=== PATIENT | female | born 1980 | race Caucasian/White ===

== ENCOUNTER 2016-11-19 05:16 | Day surgery (SDC) | payer OTHER ==
[~2016-11-19] VITALS: Ht 158.8 cm; Wt 58.2 kg
[~2016-11-19 05:16] MED LIST: CARISOPRODOL350 MG PO; Dulcolax PO; FLONASE16 G1 BOTH NARES; GABAPENTIN300 MG PO; KEFLEX500 MG PO; LEVAQUIN500 MG PO; MIRALAX17 GM PO; Milk Of Magnesia,MOM PO; NAPROSYN500 MG PO; NOHOMEMEDS; OXYCODONE HCL30 MG PO; OXYMORPHONE HCL20 MG PO; PROAIR HFA8.5 GM IH; SUBOXONE 8 MG-1 EAC2 SL; Senokot,Sennagen PO; TESSALON PERLE100 MG PO; ZOLOFT50 MG PO; oxyCODONE PO
[2016-11-19 05:53] VITALS: BP 104/68
[2016-11-19 13:53] VITALS: BP 110/60
[2016-11-19 19:15] VITALS: BP 103/55
[2016-11-19 23:06] VITALS: BP 99/55
[2016-11-20 03:22] VITALS: BP 96/54
[2016-11-20 07:24] VITALS: BP 102/61
[2016-11-20 07:31] LABS: HEMATOCRIT 32.1 % (36.0-46.0); MCH 30.7 PG (29.0-34.0); MCHC 33.6 G/DL (30.0-36.0); MCV 91.2 FL (83-99); MEAN PLAT.VOLUME 9.8 uM^3 (9.5-12.4); RBC DIS.WIDTH-CV 13.8 % (11.8-14.6); RBC DIS.WIDTH-SD 45.3 % (39-53); WHITE BLOOD COUNT 6.2 K/uL (4.1-10.2)
[2016-11-20 07:40] LABS: PLATELET COUNT 157 K/uL (156-360); RED BLOOD COUNT 3.52 M/uL (3.80-5.20)
[2016-11-20 11:16] VITALS: BP 105/60
[2016-11-20 12:03] LABS: HEMATOCRIT 32.4 % (36.0-46.0)
[2016-11-20] MEDS ORDERED: MOTRIN800 MG PO (12:37)
[2016-11-20] MEDS ORDERED: OXYCODONE HCL10 MG PO (12:39)
== END 2016-11-20 13:19 | disposition home or self-care (01) ==
LOC: SDC 05:16 → 2SOUTH 12:52 → 2EASTP 12:52 → 2SOUTH 12:52 → 2EASTP 13:42 → SDC 15:46 → 2EASTP 11-20 13:19
PROVIDERS: Obstetrics & Gynecology
DX: N94.6 Dysmenorrhea, unspecified (principal); N92.0 Excessive and frequent menstruation with regular cycle; N87.9 Dysplasia of cervix uteri, unspecified; N80.3 Endometriosis of pelvic peritoneum; N80.0 Endometriosis of uterus; F17.200 Nicotine dependence, unspecified, uncomplicated; J45.21 Mild intermittent asthma with (acute) exacerbation; Z87.410 Personal history of cervical dysplasia; F11.20 Opioid dependence, uncomplicated; Z82.61 Family history of arthritis; Z80.8 Family history of malignant neoplasm of other organs or systems; Z88.8 Allergy status to other drugs, medicaments and biological substances
CPT/HCPCS: 84702; 85014; 85018; 85025; 85027; 86900; 86901; 88305; 88307; 99202; G0378; J0131; J0690; J1100; J1170; J1885; J2250; J2550; J2710; J3010; J7120

== ENCOUNTER 2016-11-22 13:46 | Emergency (ER) | payer OTHER ==
[~2016-11-22] VITALS: Ht 160 cm; Wt 63.5 kg
[~2016-11-22 13:46] MED LIST changes: +MOTRIN800 MG PO; +OXYCODONE HCL10 MG PO
[2016-11-22] MEDS ORDERED: SUBOXONE 8 MG-1 EAC2 SL (14:46)
[2016-11-22 14:47] LABS: EOSINOPHIL (%) 8.6 % (0-5); EOSINOPHIL COUNT 0.5 K/uL (0-0.3); HEMATOCRIT 35.5 % (36.0-46.0); IMMATURE GRANULOCYTE (%) 0.4 % (0.0-0.7); LYMPHOCYTE COUNT 0.6 K/uL (1.0-2.8); MCH 29.9 PG (29.0-34.0); MCHC 33.8 G/DL (30.0-36.0); MCV 88.3 FL (83-99); MEAN PLAT.VOLUME 9.7 uM^3 (9.5-12.4); MONOCYTE (%) 2.7 % (3-12); MONOCYTE COUNT 0.1 K/uL (0-0.8); NEUTROPHIL (%) 75.5 % (45-76); PLATELET COUNT 184 K/uL (156-360); RBC DIS.WIDTH-CV 13.2 % (11.8-14.6); RBC DIS.WIDTH-SD 42.9 % (39-53); RED BLOOD COUNT 4.02 M/uL (3.80-5.20); WHITE BLOOD COUNT 5.2 K/uL (4.1-10.2)
[2016-11-22 14:56] LABS: ADD MIUA? YES; BILIRUBIN NEGATIVE; BLOOD MODERATE; COLOR YELLOW ((YELLOW)); GLUCOSE (STRIP) NEGATIVE; KETONES NEGATIVE; LEUKOCYTES TRACE; NITRITE NEGATIVE; PROTEIN (STRIP) NEGATIVE; SPECIFIC GRAVITY 1.012 (1.000-1.030); UROBILINOGEN 0.2 MG/DL (0.2-1.0)
[2016-11-22 14:56] LABS: CHLORIDE 107 mEq/L (99-109); POTASSIUM 3.7 mEq/L (3.7-5.4); SODIUM 140 mEq/L (136-147)
[2016-11-22 14:57] LABS: GLUCOSE 85 mg/dL (70-99)
[2016-11-22 14:59] LABS: ANION GAP 8 MEQ/L (2-14)
[2016-11-22 15:01] LABS: GFR ESTIMATE (CALCULATED) > 59 mL/min/
[2016-11-22 15:02] LABS: BACTERIA NONE SEEN /HPF; EPITHELIAL CELLS 4+ /HPF; MUCUS TRACE /LPF; RED BLOOD CELLS 0-5 /HPF (0-5); WHITE BLOOD CELLS 0-5 /HPF (0-5)
[2016-11-22 15:02] LABS: UREA NITROGEN (BUN) 8 mg/dL (9-23)
[2016-11-22] MEDS ORDERED: LEVAQUIN750 MG PO (15:05)
[2016-11-22 15:21] VITALS: BP 127/71
== END 2016-11-22 15:22 | disposition home or self-care (01) ==
LOC: EME 13:46
DX: N39.0 Urinary tract infection, site not specified (principal); R50.82 Postprocedural fever; Z90.710 Acquired absence of both cervix and uterus; Z98.890 Other specified postprocedural states; J45.909 Unspecified asthma, uncomplicated; F17.200 Nicotine dependence, unspecified, uncomplicated
CPT/HCPCS: 80048; 81003; 83605; 85025; 87040; 87077; 87086; 87186; 99281; 99285; J2270; J7030

== ENCOUNTER 2017-07-15 00:45 | Emergency (ER) | payer OTHER ==
[~2017-07-15] VITALS: Ht 157.5 cm; Wt 58.4 kg
[~2017-07-15 00:45] MED LIST changes: +LEVAQUIN750 MG PO
[2017-07-15 01:52] LABS: HEMATOCRIT 41.5 % (36.0-46.0); HEMOGLOBIN 14.5 G/DL (11.9-15.5); MCH 30.2 PG (29.0-34.0); MCHC 34.9 G/DL (30.0-36.0); MCV 86.5 FL (83-99); PLATELET COUNT 302 K/uL (156-360); RBC DIS.WIDTH-CV 12.7 % (11.8-14.6); RBC DIS.WIDTH-SD 39.8 % (39-53); WHITE BLOOD COUNT 6.1 K/uL (4.1-10.2)
[2017-07-15 02:00] LABS: CHLORIDE 95 mEq/L (99-109); POTASSIUM 3.4 mEq/L (3.7-5.4); SODIUM 137 mEq/L (136-147)
[2017-07-15 02:01] LABS: D-DIMER ELISA < 150.00 ng/mLDDU (<230)
[2017-07-15 02:02] LABS: GLUCOSE 110 mg/dL (70-99)
[2017-07-15 02:06] LABS: CREATININE 0.7 mg/dL (0.6-1.3); GFR ESTIMATE (CALCULATED) > 59 mL/min/
[2017-07-15 02:07] LABS: UREA NITROGEN (BUN) 21 mg/dL (9-23)
[2017-07-15] MEDS ORDERED: PHENERGAN25 MG PR (02:47)
[2017-07-15 03:00] VITALS: BP 137/75
== END 2017-07-15 03:10 | disposition home or self-care (01) ==
LOC: EME 00:45
PROVIDERS: Nurse Practitioner Family
DX: K52.9 Noninfective gastroenteritis and colitis, unspecified (principal); F17.200 Nicotine dependence, unspecified, uncomplicated; J45.909 Unspecified asthma, uncomplicated; Z90.710 Acquired absence of both cervix and uterus; F41.9 Anxiety disorder, unspecified
CPT/HCPCS: 80048; 85027; 85379; 99281; 99285; J2765; J7030